=== PATIENT | female | born 1980 | race American Indian/Alaskan Native ===

== ENCOUNTER 2020-03-26 02:13 | Emergency (ER) | payer MEDICAID ==
[2020-03-26 03:06] VITALS: BP 131/89
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
== END 2020-03-26 04:20 | disposition home or self-care (01) ==
LOC: ED 02:13
DX: R56.9 Unspecified convulsions (principal); F41.9 Anxiety disorder, unspecified
CPT/HCPCS: 99282

== ENCOUNTER 2020-10-09 20:26 | Emergency (ER) | payer MEDICAID ==
[2020-10-09 20:52] VITALS: BP 144/103
[2020-10-09] MEDS ORDERED: PROCHLORPERAZINE EDISYLATE 10 MG/2 ML VIAL IV ONE (22:07)
[2020-10-09] MEDS ORDERED: MAGNESIUM SULFATE 1 GM in SODIUM CHLORIDE 0.9% 50 ML IV ONE (22:07)
[2020-10-09] MEDS ORDERED: diphenhydrAMINE 50 MG/ML VIAL IV ONE (22:07)
[2020-10-09] MEDS ORDERED: SODIUM CHLORIDE 0.9% 1000 ML 1,000 ML IV ONE (22:07)
[2020-10-09] MEDS ORDERED: dexAMETHasone 20 MG/5 ML VIAL IV ONE (22:07)
--- NOTE | 2020-10-09 22:13 | Emergency Department Report ---
ED General Adult HPI - General Chief complaint: Headache Stated complaint: MIGRAIN,NAUSEA, BACK PAIN, TREMORS Time Seen by Provider: 10/09/20 21:38 Source: patient Mode of arrival: Ambulatory Limitations: No Limitations - History of Present Illness Initial comments: 40-year-old female patient with history of migraines and seizure disorder (on Tegretol) presents to the emergency department with complaints of diffuse headache with associated nausea and photophobia for 6 months. Patient states her current headache is consistent with prior migraines. States her headache has been constant since February. Patient is under the care of a neurologist. There has been no recent fall, trauma, or injury. Current headache is consistent with ongoing headache. When asked what changed today to prompt a visit to the emergency department, patient states, "none of the medicines my doctor is prescribing me are working." Patient is scheduled to return to her neurologist on 10/28/20. Last outpatient imaging study was performed earlier this year. Denies fever, neck stiffness, seizure, rash, vision loss, syncope. Denies all other complaints at this time. - Related Data Allergies Allergy/AdvReac Type Severity Reaction Status Date / Time No Known Allergies Allergy Unverified 10/09/20 20:48 ED Review of Systems ROS: Stated complaint: MIGRAIN,NAUSEA, BACK PAIN, TREMORS Other details as noted in HPI Other: GENERAL: Negative for fever, chills, weight change, anorexia, fatigue. EYES: Positive for photophobia. ENT: Negative for ear pain, difficulty hearing, sore throat, nasal congestion, epistaxis. CARDIOVASCULAR: Negative for chest pain, palpitations, lower extremity swelling. PULMONARY: Negative for cough, dyspnea, wheezing, orthopnea, cyanosis. GASTROINTESTINAL: Positive for nausea and vomiting. MUSCULOSKELETAL: Negative for joint pain, joint swelling, myalgias, back pain, neck pain. NEUROLOGICAL: Positive for headache. INTEGUMENTARY: Negative for erythema, rash, diaphoresis, laceration, ecchymosis. HEMATOLOGICAL: Negative for hemoptysis, hematemesis, hematochezia, hematuria. PSYCHIATRIC: Negative for hallucinations, suicidal ideation, homicidal ideation, anxiety, depression. ED Past Medical Hx - Past Medical History Previous Medical History?: Yes Additional medical history: Seizures/ Migraines - Surgical History Past Surgical History?: Yes Additional Surgical History: unknown - Social History Smoking Status: Unknown if ever smoked ED Physical Exam - General Limitations: No Limitations - Other Other exam information: General: Awake and alert. No acute distress. Head: Atraumatic, normocephalic. Eyes: EOMI. Patient is wearing colored contacts, no nystagmus. Normal sclera and conjunctiva. ENT: Oral mucosa is moist. Normal pharyngeal exam. Neck: Supple. No lymphadenopathy. Pulmonary: No respiratory distress. Clear to auscultation bilaterally. Cardiac: Tachycardic. Pulses are palpable and equal bilaterally. No lower extremity cyanosis or edema. Skin: Warm and dry. No rashes. Abdomen: Soft, non-tender, non-protuberant. No guarding, rigidity, or rebound. Bowel sounds are normal. No organomegaly or masses noted. Back: Normal alignment. No CVA tenderness. Extremities: Symmetrical. Full range of motion intact. Neurological: Alert and oriented, appropriately interactive, no focal deficits. Strength and sensation intact throughout. Ambulatory without assistance. Psych: Cooperative. Appropriate mood and affect. Speech is evenly metered. Thoughts are logically construed. ED Course Vital Signs 10/09/20 10/10/20 20:50 00:05 Temperature 98.5 F Pulse Rate 119 H 94 H Respiratory 19 17 Rate Blood Pressure 144/103 O2 Sat by Pulse 100 100 Oximetry ED Medical Decision Making - Medical Decision Making Differential diagnosis including but not limited to: tension headache, migraine headache, cluster headache, meningitis/encephalitis, pseudotumor cerebri, temporal arteritis On reevaluation, patient is sleeping comfortably. Tachycardia resolved. Repeat HR in the 90's. Current headache is consistent with recurrent migraine she has been experiencing over the last 6 months. Symptoms are unchanged today. She is already under the care of a neurologist and has already undergone imaging. She is scheduled to follow-up with her neurologist this month. History, exam, diagnostic testing, and current condition do not suggest worrisome pathology to warrant further testing, emergent intervention, admission, or specialist evaluation at this point. Additional testing such as CT imaging or lumbar puncture is not indicated at this time, but should be considered if symptoms worsen or recur. Discussed findings, presumptive diagnosis, need for follow-up and specific signs/symptoms that should prompt immediate return to the emergency department. Instructions were explained in detail to the patient in addition to giving written discharge information. Patient expressed understanding and was given the opportunity to ask questions, all of which were satisfactorily answered prior to discharge home. Critical care attestation.: If time is entered above; I have spent that time in minutes in the direct care of this critically ill patient, excluding procedure time. ED Disposition Clinical Impression: Chronic migraine Disposition: - TO HOME OR SELFCARE Is pt being admited?: No Does the pt Need Aspirin: No Condition: Stable Instructions: Recurrent Migraine Headache, [id number] Additional Instructions: Continue medications as previously prescribed. Follow-up with your neurologist this week. Call tomorrow to schedule an appointment. Return to the emergency department immediately for new or worsening symptoms. Referrals: CATHIE MCCURDY MD [Staff Physician] - 3-5 Days Time of Disposition: 23:49
== END 2020-10-10 00:05 | disposition home or self-care (01) ==
LOC: ED 20:26
DX: G43.709 Chronic migraine without aura, not intractable, without status migrainosus (principal)
CPT/HCPCS: 96365; 96375; 99282; J0780; J1100; J1200; J3475; J7030

== ENCOUNTER 2021-03-23 11:54 | Emergency (ER) | payer MEDICAID ==
--- NOTE | 2021-03-23 16:00 | XRay Report ---
EXAMINATION: XR ankle 2V RT, INDICATION / CLINICAL INFORMATION: Right ankle pain and swelling with injury COMPARISON: None available. FINDINGS: BONES / JOINT(S): No acute fracture or subluxation. SOFT TISSUES: There is prominent soft tissue swelling of the ankle. No soft tissue gas or radiopaque foreign body. ADDITIONAL FINDINGS: None. IMPRESSION: Circumferential soft tissue swelling of the ankle. No acute osseous findings identified. Signer Name: Parviz Paez MD Signed: 03/23/2021 3:56 PM Workstation Name: [id number]
[2021-03-23 16:20] VITALS: BP 125/76
[2021-03-23] MEDS ORDERED: IBUPROFEN 600 MG TAB PO ONE (16:34)
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
== END 2021-03-23 17:33 | disposition home or self-care (01) ==
LOC: ED 11:54
DX: S93.401A Sprain of unspecified ligament of right ankle, initial encounter (principal); S99.911A Unspecified injury of right ankle, initial encounter; V89.2XXA Person injured in unspecified motor-vehicle accident, traffic, initial encounter; Y93.89 Activity, other specified; Y92.89 Other specified places as the place of occurrence of the external cause; Y99.8 Other external cause status
CPT/HCPCS: 99283